=== PATIENT | male | born 2000 ===

== ENCOUNTER 2025-03-25 20:28 | Emergency (ER) | payer BC ==
[2025-03-25] MEDS ORDERED: Naloxone 0.4 MG/ML SDV IVPUSH PRN (20:47)
[2025-03-25 20:59] LABS: BASOPHILS PERCENT AUTO 0.4 % (0.0-1.0); EOSINOPHILS ABSOLUTE AUTO 0.1 K/mm3 (0.0-0.4); HEMATOCRIT 44.3 % (42.0-52.0); IMMATURE GRAN ABSOLUTE AUTO 0.13 K/mm3 (0.00-0.05); IMMATURE GRAN PERCENT AUTO 1.7 % (0.0-0.4); LYMPHOCYTES ABSOLUTE AUTO 2.1 K/mm3 (1.0-4.8); LYMPHOCYTES PERCENT AUTO 27.2 % (24.0-44.0); MEAN CORPUSCULAR HGB CONC 33.9 g/dl (32.0-36.0); MEAN CORPUSCULAR VOLUME 85.7 fl (83.0-99.0); MEAN PLATELET VOLUME 9.8 fl (9.4-12.4); MONOCYTES ABSOLUTE AUTO 0.6 K/mm3 (0.0-0.8); MONOCYTES PERCENT AUTO 7.5 % (0.0-8.0); NEUTROPHILS ABSOLUTE AUTO 4.8 K/mm3 (1.8-7.7); NEUTROPHILS PERCENT AUTO 62.2 % (41.0-71.0); PLATELET COUNT,PLT 181 K/mm3 (150-400); RED BLOOD CELL COUNT 5.17 M/mm3 (4.52-5.90); WHITE BLOOD CELL COUNT,WBC 7.65 K/mm3 (3.9-11.3)
[2025-03-25] MEDS: Morphine 4 MG/ML Syringe IVPUSH ONE (21:09)
[2025-03-25] MEDS: Ondansetron 4 MG/2 ML SDV IVPUSH ONE (21:09)
[2025-03-25 21:17] LABS: INR 1.06; PROTHROMBIN TIME 11.2 SECONDS (9.7-12.0)
[2025-03-25 21:18] LABS: PTT,PARTIAL THROMBOPLSTIN TIME 26.5 SECONDS (21.7-31.4)
[2025-03-25 21:24] LABS: A/G RATIO 1.3 (1-2); ALBUMIN 4.3 g/dl (3.4-5.0); ANION GAP 11.8 (5-15); BILIRUBIN TOTAL 0.3 mg/dL (0.2-1.0); CALCIUM 9.2 mg/dL (8.5-10.1); EST CRCL DRUG DOSING (CG) 126.51 mL/min; POTASSIUM,K 3.8 mEq/L (3.5-5.1); PROTEIN TOTAL,TP 7.6 g/dl (6.4-8.2)
[2025-03-25] MEDS: HYDROmorphone 0.5 MG/0.5 ML Syringe IVPUSH ONE (21:55)
[2025-03-25] MEDS: Sodium Chloride 0.9% 10 ML Syringe FLUSH PRN (21:56)
[2025-03-25] MEDS: Iopamidol 612 MG/ML 100 ML Bottle IVPUSH ONE (22:00)
[2025-03-25] MEDS: Iopamidol 612 MG/ML 30 ML SDV IV ONE (22:00)
[2025-03-25] MEDS: Acetaminophen 325 MG Tab PO ONE (23:05)
[2025-03-25] MEDS: Acetaminophen/HYDROcodone 325-5 MG Tab PO ONE (23:06)
== END 2025-03-26 00:15 | disposition home or self-care (01) ==
LOC: JD.ED 20:28
DX: S22.039A Unspecified fracture of third thoracic vertebra, initial encounter for closed fracture (principal); S22.049A Unspecified fracture of fourth thoracic vertebra, initial encounter for closed fracture; X58.XXXA Exposure to other specified factors, initial encounter; Y93.89 Activity, other specified
CPT/HCPCS: 36415; 70450; 71045; 71260; 72125; 72128; 72131; 74177; 80053; 80307; 83690; 84484; 85025; 85610; 85730; 93005; 96374; 96375; 99284; A9270; J2270; J2405; Q9967; 93010